=== PATIENT | female | born 1980 | race Two or more races ===

== ENCOUNTER 2020-07-20 10:15 | Inpatient (IN) | payer OTHER ==
[~2020-07-20] VITALS: Ht 162.6 cm; Wt 69.9 kg
[2020-07-29] MEDS ORDERED: POLY119PG PO (07:14)
[2020-07-29] MEDS ORDERED: SIMETHICONE125 M1 PO (07:14)
[2020-07-29] MEDS ORDERED: DUI500 PO (07:14)
[2020-07-29] MEDS ORDERED: NEURONTIN600 MG PO (07:14)
[2020-07-29] MEDS ORDERED: IBUPROFEN800 MG PO (07:14)
== END 2020-07-29 08:59 | disposition home or self-care (01) | DRG 743 ==
LOC: SURG-SUITE 07-27 05:13 → O/R 07-27 05:13 → OB/GYN 07-27 10:00 → SURG-SUITE 07-27 10:42
PROVIDERS: ADMIT Obstetrics & Gynecology; ATTEND Obstetrics & Gynecology
PROC: 0UT90ZZ Resection of Uterus, Open Approach (ICD-10-PCS; principal; 2020-07-27 10:00)
DX: D25.1 Intramural leiomyoma of uterus (principal); D25.0 Submucous leiomyoma of uterus; D25.2 Subserosal leiomyoma of uterus; N93.8 Other specified abnormal uterine and vaginal bleeding; N72 Inflammatory disease of cervix uteri; D28.2 Benign neoplasm of uterine tubes and ligaments; Z20.828 Contact with and (suspected) exposure to other viral communicable diseases